=== PATIENT | female | born 1965 | race Two or more races ===

== ENCOUNTER 2019-06-15 07:18 | Day surgery (SDC) | payer OTHER ==
[~2019-06-15] VITALS: Ht 165.1 cm; Wt 85.7 kg
[2019-06-15] MEDS ORDERED: fentaNYL 0.05 MG/ML VIAL ONE (09:03)
[2019-06-15] MEDS ORDERED: LIDOCAINE 2% 100 MG/5 ML UJET TP ONE (09:03)
[2019-06-15] MEDS ORDERED: MIDAZOLAM 2 MG/2 ML VIAL ONE (09:03)
[2019-06-15] MEDS ORDERED: MIDAZOLAM 2 MG/2 ML VIAL IVP ONE (10:00)
[2019-06-15] MEDS ORDERED: fentaNYL 0.05 MG/ML VIAL IVP ONE (10:00)
== END 2019-06-15 10:05 | disposition home or self-care (01) ==
LOC: MOR 07:18 → MMU 07:21 → MOR 10:05
PROVIDERS: ATTEND Internal Medicine Gastroenterology
DX: K62.89 Other specified diseases of anus and rectum (principal); K29.80 Duodenitis without bleeding; K29.70 Gastritis, unspecified, without bleeding; I10 Essential (primary) hypertension; E66.9 Obesity, unspecified; Z68.31 Body mass index [BMI] 31.0-31.9, adult; Z88.8 Allergy status to other drugs, medicaments and biological substances; Z79.82 Long term (current) use of aspirin; Z79.899 Other long term (current) drug therapy; Z98.890 Other specified postprocedural states
CPT/HCPCS: 36415; 43239; 45380; 81025; 86677; 88305; J2250; J3010